=== PATIENT | female | born 1935 | race Caucasian/White ===

== ENCOUNTER → 2024-01-09 12:42 | Outpatient (REF) | payer MEDICARE, BC, SELFPAY | LOC: RCS 12:42 | PROVIDERS: ATTENDING PHYSICIAN Nuclear Medicine Nuclear Cardiology; FAMILY PHYSICIAN Family Medicine | DX: I25.10 Atherosclerotic heart disease of native coronary artery without angina pectoris (principal); I21.4 Non-ST elevation (NSTEMI) myocardial infarction; I34.0 Nonrheumatic mitral (valve) insufficiency; I25.5 Ischemic cardiomyopathy | CPT/HCPCS: 93306 ==